=== PATIENT | male | born 2000 | race Caucasian/White ===

== ENCOUNTER 2020-02-26 07:20 | Emergency (ER) | payer MEDICAID ==
[~2020-02-26] VITALS: Ht 170.2 cm; Wt 64.0 kg
[2020-02-26 08:40] LABS: BASOPHILS % 0.2 % (0.0-2.0); EOSINOPHILS % 0.2 % (0.0-5.0); HEMATOCRIT. 31.3 % (42.0-52.0); HEMOGLOBIN. 10.6 g/dL (14.0-18.0); LYMPHOCYTES % 12.7 % (20.0-50.0); MEAN CORPUSCULAR HEMOGLOBIN 30.3 pg (28.0-32.0); MEAN PLATELET VOLUME 8.5 fl (7.4-10.4); NEUTROPHILS % 74.9 % (40.0-76.0); PLATELET 276 x1000/uL (130-400); RED BLOOD CELL COUNT 3.48 mill/uL (4.7-6.1); RED CELL DISTRIBUTION WIDTH 15.4 % (11.6-14.6)
[2020-02-26 08:46] LABS: CHLORIDE 105 mEq/L (98-107); INR 1.1; PROTHROMBIN TIME 11.7 sec (9.6-11.0)
[2020-02-26] MEDS ORDERED: IOHEXOL-350 100 ML BOTTLE ONE (10:49)
[2020-02-26] MEDS ORDERED: SODIUM CHLORIDE 0.9% 1,000 ML IV ONE (11:06)
[2020-02-26 12:39] VITALS: BP 108/51
== END 2020-02-26 13:10 | disposition short-term general hospital (02) ==
LOC: ER 07:20
DX: T81.718A Complication of other artery following a procedure, not elsewhere classified, initial encounter (principal); T81.30XA Disruption of wound, unspecified, initial encounter; I72.4 Aneurysm of artery of lower extremity; J45.909 Unspecified asthma, uncomplicated; Z87.828 Personal history of other (healed) physical injury and trauma; Y83.8 Other surgical procedures as the cause of abnormal reaction of the patient, or of later complication, without mention of misadventure at the time of the procedure; Y92.018 Other place in single-family (private) house as the place of occurrence of the external cause; Z93.1 Gastrostomy status
CPT/HCPCS: 36415; 72191; 73590; 73706; 80053; 85025; 85610; 93922; 96360; 96361; 99285; J7030; Q9967

== ENCOUNTER 2021-12-20 21:59 | Emergency (ER) | payer MEDICAID, OTHER | END 2021-12-20 22:30 | disposition left against medical advice (07) | LOC: ER 21:59 | DX: Z53.21 Procedure and treatment not carried out due to patient leaving prior to being seen by health care provider (principal) ==